=== PATIENT | male | born 1955 ===

== ENCOUNTER 2024-07-08 09:58 | Emergency (ER) | payer MEDICARE, SELFPAY ==
[2024-07-08 10:04] VITALS: BP 128/68
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
[2024-07-08 11:26] VITALS: BMI 28.7
[2024-07-08 11:39] LABS: % Basophils 0.6 % (0-2); % Eosinophils 1.9 % (0-6); % Immature Granulocytes 0.2 % (0-0.5); % Lymphocytes 29.5 % (20.5-51.1); % Monocytes 6.5 % (1.7-9.3); % Neutrophils 61.3 % (42.2-75.2); Absolute Basophils 0.1 10^3/uL (0-0.2); Absolute Eosinophils 0.2 10^3/uL (0-0.7); Absolute Lymphocytes 2.8 10^3/uL (1.2-3.4); Absolute Monocytes 0.6 10^3/uL (0.1-0.6); Absolute Neutrophils 5.7 10^3/uL (1.4-6.5); Hematocrit 48.1 % (39.0-52.0); Hemoglobin 15.8 g/dL (13.0-18.0); Mean Corp Hgb Conc. 32.8 g/dL (33.0-37.0); Mean Corpuscular Volume 88.3 fL (80.0-94.0); Mean Platelet Volume 8.9 fL (7.4-10.4); Nucleated Red Blood Cells % 0 % (-); Platelet Count 200 10^3/uL (130-400); Red Blood Cell Count 5.45 10^6/uL (4.70-6.10); Red Cell Dist. Width 13.9 % (11.5-14.5); White Blood Cell Count 9.3 10^3/uL (4.8-10.8)
[2024-07-08 12:00] LABS: ALT (SGPT) 20 U/L (0-50); AST (SGOT) 27 U/L (17-59); Albumin 4.1 g/dl (3.5-5.0); Alkaline Phosphatase 142 U/L (38-126); Blood Urea Nitrogen 21 mg/dl (9-20); Calcium 9.4 mg/dl (8.4-10.2); Carbon Dioxide 26 mmol/L (22-30); Chloride 102 mmol/L (98-107); Estimated Creatinine Clearance 65 ml/min; Glucose 226 mg/dl (70-99); Potassium 4.3 mmol/L (3.5-5.1); Sodium 140 mmol/L (135-145); Total Bilirubin 0.3 mg/dl (0.2-1.3); Total Protein 6.7 g/dl (6.3-8.2); eGFR > 60.00
[2024-07-08 12:01] LABS: Troponin I < 0.012 ng/ml
[2024-07-08 12:57] VITALS: BP 118/69
[2024-07-08 16:32] VITALS: BP 140/74
[2024-07-09 05:32] LABS: Glucose - Point of Care 216 mg/dl (70-99)
[2024-07-09] MEDS: GLUCOPHAGE 1000 MG PO (05:36)
[2024-07-09] MEDS: NEURONTIN 300 MG PO (05:36)
[2024-07-09] MEDS: ZESTRIL 10 MG PO (05:37)
[2024-07-09] MEDS: PRANDIN 1 MG PO (05:38)
[2024-07-09 10:00] VITALS: BP 134/68
[2024-07-09] MEDS: LEXAPRO 20 MG PO (10:02)
[2024-07-09 10:27] LABS: COVID-19 Antigen Negative (Negative)
--- NOTE | 2024-07-09 16:28 | ED.CRISIS ---
ED Crisis Note
ED Crisis Note
Assessment/Plan:
Patient is a 69 year-old male awaiting placement. Patient has been cooperative here in the ER no acute distress patient mentioned suicidal ideation in the past intermittently however during exam yesterday had no plan of care. He continues to deny
suicidal ideation.
He is requesting to go to crisis . he is in a [facility] and does not like his current situation. He has been cooperative here in the ER resting in no acute distress. bed placement pending ([id number])
[2024-07-09 16:37] VITALS: BP 125/68
[2024-07-10 01:25] VITALS: BP 121/76
[2024-07-10] MEDS: LEXAPRO 20 MG PO (07:40)
[2024-07-10 07:52] VITALS: BP 142/70
[2024-07-10 08:12] LABS: Glucose - Point of Care 177 mg/dl (70-99)
--- NOTE | 2024-07-10 10:22 | CM ---
CM provided transportation assistance via [employer] to patient's nursing home.
== END 2024-07-10 10:50 | disposition home or self-care (01) ==
LOC: EMR 09:58
PROVIDERS: Nurse Practitioner; EMERGENCY PHYSICIAN Emergency Medicine
DX: F32.A Depression, unspecified (principal); E11.9 Type 2 diabetes mellitus without complications; I10 Essential (primary) hypertension; E78.00 Pure hypercholesterolemia, unspecified; F17.210 Nicotine dependence, cigarettes, uncomplicated; R29.6 Repeated falls; Z59.01 Sheltered homelessness
CPT/HCPCS: 99283; 70450; 80053; 82962; 84484; 85025; 87811; 93005